=== PATIENT | female | born 1995 | race Caucasian/White ===

== ENCOUNTER 2023-05-29 07:36 | Inpatient (IN) ==
[2023-05-29] MEDS ORDERED: LIDOCAINE 1% LOCAL 20 ML VIAL INFIL PRN (07:56)
[2023-05-29] MEDS ORDERED: OXYTOCIN 30 UNITS/NSS 30 UNITS/500 ML BAG IV PRN ×2 (07:56)
[2023-05-29 08:28] LABS: Hematocrit (blood only) 33.3 % (37.0-47.0); Hemoglobin 10.7 g/dl (12.0-16.0); Mean Corpuscular Hemoglobin 26.1 pg (25.0-34.0); Mean Corpuscular Hgb Conc 32.1 g/dL (32.0-36.0); Mean Corpuscular Volume 81.2 fL (80.0-100.0); Mean Platelet Volume 11.4 fL (9.4-12.4); Platelet Count 151 K/uL (130-400); RDW Coefficient of Variation 14.5 % (11.5-14.5); RDW Standard Deviation 41.8 fL (36.4-46.3); White Blood Count 7.16 K/ul (4.8-10.8)
[2023-05-29] MEDS: LACTATED RINGER'S 1,000 ML IV PRN ×4 (10:35→23:04)
--- NOTE | 2023-05-29 11:03 | History & Physical Report ---
Date of Service May 29, 2023 Assessment & Plan (1) Supervision of normal first : Plan: Admit to L&D for IOL. Bird bulb placed, 35cc sterile water. Start pitocin. OK for epidural when she desires. Admission and Anticipated Discharge Date Admission Date: May 29, 2023 History of Present Illness Chief Complaint: IOL Primary Care Provider: CASEY PCP 28yo @ 40 09/12, here for IOL. and Delivery Plans Chiari Malformation s/p decompression -mfm consult (11/14/22 @ [facility] [place]ok for vaginal delivery per [facility] recommend 3rd trimester anesthesia consult (03/19/23 @ 945 am)--done Rubella equivocal MMR pp EFW 96% at anatomy LGA at 32wks *recheck growth at 36wks--AC 98, efw >98, poly *rec 2hr gtt Polyhydramnios *Weekly NSTs @ Dx *Weekly AFIs @ Dx *If pocket >16 refer to MFM *Deliver between [id number] (IOL scheduled 05/29/23) Allergies Allergy/AdvReac Type Severity Reaction Status Date / Time No Known Allergies Allergy Verified 05/29/23 08:18 Home Medications Medication Instructions Recorded Confirmed Type prenat.vits,sheng,kix-jgwo-uuuix 1 tab PO DAILY 10/18/22 05/29/23 History Patient History Medical History Chiari malformation Type I malformation per [facility] records Status post posterior decompression via suboccipital craniotomy in 2014 by neurosurgeon in [place]. Completely asymptomatic since that time. Follow-up with neurosurgery for a few years after procedure but has since been released from care Varicella vaccine Chicken pox Surgical History History of craniotomy Posterior decompression via suboccipital craniotomy 2014 S/P tonsillectomy and adenoidectomy S/P tympanostomy tube placement Family History Grandmother (Paternal) Breast cancer Grandfather (Paternal) Colorectal cancer Brother Autism Denies family history of Ovarian cancer Prostate cancer Myocardial infarction Social History Smoking Status: Never smoker Do You Dip or Chew Tobacco: No; Hx Alcohol Use: No Hx Substance Use: No Preferred Language: Korean 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 Beliefs That Will Affect Care: None marital status: marital status details: Nguyễn Montes (26) [phone] Current Living Situation: Spouse Current Living Situation Comment: lives with , dog current occupational status: employed current occupation: [employer] Other Information That Helps Us Care for You: No Feels Safe at Home: Yes Safety Concerns: Feels Safe At This Time Assistive Devices: None Review of Systems All systems reviewed & are unremarkable except as noted in HPI & below Physical Exam Physical Exam: FHT Cat 1 [place] Q 2 SVE /-3 Constitutional: WD/WN, vitals as above Respiratory: normal respiratory effort, lungs clear to auscultation no respiratory distress Cardiovascular: Rate/Rhythm: regular rate and regular rhythm Gastrointestinal (Abdomen): Inspection/Auscultation: abdomen normal to ins pection Percussion/Palpation: abdomen soft; abdomen nontender Gravid. No s/s chorio or abruption. Skin: no rashes, warm and dry Psychiatric: A+Ox3, euthymic affect Results & Data Vital Signs (Past 12 Hours) Vital Signs Temp Pulse Resp BP 05/29/23 10:45 97 H 126/85 05/29/23 07:50 36.7 C 18 05/29/23 07:47 107 H 127/85 Coding Level of Care Code None Diagnoses Supervision of normal first Z34.00
[2023-05-29] MEDS ORDERED: BUTORPHANOL TARTRATE 1 MG/ML VIAL IV PRN (12:00)
--- NOTE | 2023-05-29 19:17 | Labor Progress Brief Note ---
Date of Service May 29, 2023 Subjective Comfortable. FHT Cat 1 [place] Q 2 Bird bulb fell out, cervix is 4/80/-2. Bulging membranes. AROM clear fluid. Continue pitocin, ok for epidural when she desires. Assessment & Plan Admission and Anticipated Discharge Date Admission Date: May 29, 2023 Results & Data Vital Signs (Past 12 Hours) Vital Signs Temp Pulse Resp BP 05/29/23 18:49 20 05/29/23 18:49 37.0 C 20 05/29/23 18:47 92 H 141/81 H 05/29/23 17:46 97 H 133/83 05/29/23 16:47 95 H 131/85 05/29/23 15:46 93 H 143/73 H 05/29/23 15:19 36.7 C 05/29/23 14:47 99 H 130/84 05/29/23 14:00 16 05/29/23 14:00 36.6 C 16 05/29/23 13:46 99 H 122/79 05/29/23 12:46 94 H 116/72 05/29/23 11:47 91 H 135/82 05/29/23 10:45 97 H 126/85 05/29/23 07:50 36.7 C 18 05/29/23 07:47 107 H 127/85 Coding Level of Care Code None
[2023-05-29] MEDS ORDERED: fentANYL 2 MCG/ML BUPIVacaine 0.125%-NSS 100ML BAG ONE (20:01)
[2023-05-29] MEDS ORDERED: LIDOCAINE 2%/EPINEPHRINE 1:200,000 20 ML PF ONE (20:01)
[2023-05-29] MEDS ORDERED: fentaNYL citrate PF 100 MCG/2 ML VIAL ONE (20:01)
[2023-05-29] MEDS ORDERED: ePHEDrine sulfate 50 MG/ML AMP ONE (20:01)
[2023-05-29] MEDS ORDERED: SODIUM CHLORIDE 0.9% PF INJ 10 ML VIAL ONE (20:01)
[2023-05-29] MEDS ORDERED: BUPIVACAINE 0.25% PF 30 ML VIAL ONE (20:01)
--- NOTE | 2023-05-29 20:05 | Anesthesiology Consultation ---
Date of Service May 29, 2023 Assessment & Plan (1) Encounter for pre-operative examination: Chart Review Chart Review: Acceptable Risk for Labor Epidural History Height/Weight Height: 5 ft 9 in Weight: 110.223 kg Allergies Allergy/AdvReac Type Severity Reaction Status Date / Time No Known Allergies Allergy Verified 05/29/23 08:18 Medications Home Medications Medication Instructions Recorded Confirmed Last Taken prenat.vits,sheng,men-yhkb-jzvjm 1 tab PO DAILY 10/18/22 05/29/23 05/29/23 06:00 Active Medications Generic Name Dose Route Start Last Admin Trade Name Freq PRN Reason Stop Dose Admin Butorphanol Tartrate 1 mg 05/29/23 12:00 05/29/23 12:11 Butorphanol Tartrate 1 Mg/Ml Vial IV 06/28/23 11:59 1 mg Q2HWA PRN Administration Pain Lactated Ringer's 1,000 mls @ 125 mls/hr 05/29/23 07:56 05/29/23 19:50 Lr IV 05/31/23 07:55 999 mls/hr .Q8H PRN Infusion L&D Protocol Protocol Oxytocin 30 units in 500 mls @ 10 mls/hr 05/29/23 07:56 05/29/23 19:18 Pitocin 30 Units/Nss IV 05/31/23 07:55 0.6 units/hr .Q24H PRN 10 mls/hr Labor Induction/Augmentation Titration Protocol 0.6 UNITS/HR Past Medical History Medical History Chiari malformation Type I malformation per [facility] records Status post posterior decompression via suboccipital craniotomy in 2014 by neurosurgeon in [place]. Completely asymptomatic since that time. Follow-up with neurosurgery for a few years after procedure but has since been released from care Varicella vaccine Chicken pox Past Family History Family History Grandmother (Paternal) Breast cancer Grandfather (Paternal) Colorectal cancer Brother Autism Denies family history of Ovarian cancer Prostate cancer Myocardial infarction Past Surgical History Surgical History History of craniotomy Posterior decompression via suboccipital craniotomy 2015 S/P tonsillectomy and adenoidectomy S/P tympanostomy tube placement Social History Smoking Status: Never smoker Do You Dip or Chew Tobacco: No Hx Alcohol Use: No Hx Substance Use: No Physical Exam Vital Signs Last Vital Signs Temp 37.0 C 05/29/23 18:49 Pulse 99 H 05/29/23 19:47 Resp 20 05/29/23 18:49 BP 141/98 H 05/29/23 19:47 Testing Laboratory Results 05/29/23 08:11 Blood Type A Positive 05/29/23 08:11 Antibody Screen NEGATIVE 05/29/23 08:11
[2023-05-29] MEDS ORDERED: NALOXONE HCL 0.4 MG/1 ML VIAL/CARP IV PRN (20:34)
[2023-05-29] MEDS ORDERED: fentaNYL citrate PF 100 MCG/2 ML VIAL EPI PRN (20:34)
[2023-05-29] MEDS ORDERED: LIDOCAINE 2% MPF LOCAL 5 ML VIAL EPI PRN (20:34)
[2023-05-29] MEDS ORDERED: ROPIVACAINE 0.5% PF 5 MG/ML 20 ML VIAL EPI PRN (20:34)
[2023-05-29] MEDS ORDERED: ePHEDrine sulfate 50 MG/ML AMP IV PRN (20:34)
[2023-05-29] MEDS ORDERED: fentaNYL citrate PF 100 MCG/2 ML VIAL EPI STA (20:34)
[2023-05-29] MEDS ORDERED: SODIUM CHLORIDE 0.9% PF INJ 10 ML VIAL EPI STA (20:34)
[2023-05-29] MEDS ORDERED: BUPIVACAINE 0.25% PF 30 ML VIAL EPI STA (20:34)
[2023-05-29] MEDS ORDERED: BUPIVACAINE 0.25% PF 30 ML VIAL EPI PRN (20:34)
[2023-05-29] MEDS ORDERED: SODIUM CHLORIDE 0.9% PF INJ 10 ML VIAL EPI PRN (20:34)
[2023-05-29] MEDS ORDERED: NALOXONE HCL 1 MG in SODIUM CHLORIDE 0.9% 1,000 ML IV PRN (20:34)
[2023-05-29] MEDS ORDERED: ONDANSETRON INJ 2 MG/ML 2 ML VIAL IV PRN (20:34)
[2023-05-29] MEDS ORDERED: LIDOCAINE 2%/EPINEPHRINE 1:200,000 20 ML PF EPI STA (20:34)
--- NOTE | 2023-05-30 00:37 | Labor Progress Brief Note ---
Date of Service May 30, 2023 Subjective Comfortable with epidural. FHT Cat 1 [place] Q 2 SVE /-1 Continue pitocin. Assessment & Plan Admission and Anticipated Discharge Date Admission Date: May 29, 2023 Results & Data Vital Signs (Past 12 Hours) Vital Signs Temp Pulse Resp BP Pulse Ox O2 Del Method 05/30/23 00:32 93 H 116/68 05/30/23 00:31 91 H 95 05/30/23 00:26 82 95 05/30/23 00:21 93 H 95 05/30/23 00:16 94 H 119/71 95 05/30/23 00:11 95 H 95 05/30/23 00:06 94 H 95 05/30/23 00:02 86 124/70 05/30/23 00:01 87 96 05/30/23 00:00 18 05/30/23 00:00 18 05/29/23 23:56 94 H 95 05/29/23 23:51 97 H 96 05/29/23 23:46 95 05/29/23 23:46 87 05/29/23 23:46 93 H 112/64 05/29/23 23:41 97 H 95 05/29/23 23:36 83 95 05/29/23 23:31 91 H 123/71 96 05/29/23 23:30 18 05/29/23 23:30 18 05/29/23 23:26 94 H 96 05/29/23 23:21 95 H 97 05/29/23 23:16 96 05/29/23 23:16 97 H 05/29/23 23:16 90 125/77 05/29/23 23:12 36.8 C 18 05/29/23 23:12 Room Air 05/29/23 23:12 18 05/29/23 23:12 36.8 C 18 05/29/23 23:11 91 H 97 05/29/23 23:06 92 H 97 05/29/23 23:03 95 H 121/78 05/29/23 23:01 101 H 96 05/29/23 23:00 20 05/29/23 23:00 36.9 C 20 05/29/23 22:56 99 H 98 05/29/23 22:51 88 99 05/29/23 22:48 82 122/77 05/29/23 22:46 97 H 98 05/29/23 22:41 87 98 05/29/23 22:36 104 H 96 05/29/23 22:32 107 H 121/76 05/29/23 22:31 96 H 96 05/29/23 22:30 18 05/29/23 22:30 18 05/29/23 22:26 97 H 96 05/29/23 22:21 102 H 96 05/29/23 22:16 96 05/29/23 22:16 93 H 05/29/23 22:16 104 H 117/68 05/29/23 22:11 111 H 96 05/29/23 22:06 91 H 95 05/29/23 22:02 94 H 127/78 05/29/23 22:01 93 H 96 05/29/23 22:00 20 05/29/23 22:00 20 05/29/23 21:56 96 H 96 05/29/23 21:51 90 96 05/29/23 21:46 96 05/29/23 21:46 92 H 05/29/23 21:46 93 H 125/79 05/29/23 21:41 99 H 96 05/29/23 21:36 97 H 96 05/29/23 21:31 97 H 120/67 96 05/29/23 21:30 20 05/29/23 21:30 20 05/29/23 21:27 89 123/70 05/29/23 21:26 82 95 05/29/23 21:22 88 121/60 05/29/23 21:21 92 H 95 05/29/23 21:17 85 123/68 05/29/23 21:16 84 95 05/29/23 21:11 95 05/29/23 21:11 80 05/29/23 21:11 90 119/67 05/29/23 21:08 90 122/72 05/29/23 21:06 89 95 05/29/23 21:01 96 05/29/23 21:01 92 H 05/29/23 21:01 86 117/70 05/29/23 21:00 20 05/29/23 21:00 20 05/29/23 20:56 85 130/69 96 05/29/23 20:51 99 H 123/72 98 05/29/23 20:46 90 98 05/29/23 20:45 87 126/77 05/29/23 20:43 85 120/71 05/29/23 20:41 90 126/74 94 05/29/23 20:39 83 129/74 05/29/23 20:37 84 127/75 85 L 05/29/23 20:36 76 94 05/29/23 20:35 91 H 126/75 05/29/23 20:33 85 130/76 05/29/23 20:31 96 05/29/23 20:31 89 05/29/23 20:31 93 H 136/74 05/29/23 20:30 20 05/29/23 20:30 36.8 C 20 05/29/23 20:29 96 H 136/79 05/29/23 20:28 98 H 89 L 05/29/23 20:26 104 H 93 05/29/23 20:25 18 05/29/23 20:25 18 05/29/23 20:21 115 H 93 05/29/23 20:20 109 H 88 L 05/29/23 20:16 112 H 79 L 05/29/23 20:14 96 H 84 L 05/29/23 20:11 95 H 93 05/29/23 20:06 90 05/29/23 20:06 91 H 05/29/23 20:06 93 H 92 05/29/23 19:47 99 H 141/98 H 05/29/23 18:49 20 05/29/23 18:49 37.0 C 20 05/29/23 18:47 92 H 141/81 H 05/29/23 17:46 97 H 133/83 05/29/23 16:47 95 H 131/85 05/29/23 15:46 93 H 143/73 H 05/29/23 15:19 36.7 C 05/29/23 14:47 99 H 130/84 05/29/23 14:00 16 05/29/23 14:00 36.6 C 16 05/29/23 13:46 99 H 122/79 05/29/23 12:46 94 H 116/72 Coding Level of Care Code None
[2023-05-30] MEDS: fentANYL 2 MCG/ML BUPIVacaine 0.125%-NSS 100ML BAG EPI PRN ×2 (05:02→11:26)
--- NOTE | 2023-05-30 05:05 | Labor Progress Brief Note ---
Date of Service May 30, 2023 Subjective Comfortable with epidural. FHT cat 1 [place] Q 2 SVE 7/100/0 Continue IOL. Assessment & Plan Admission and Anticipated Discharge Date Admission Date: May 29, 2023 Results & Data Vital Signs (Past 12 Hours) Vital Signs Temp Pulse Resp BP Pulse Ox O2 Del Method 05/30/23 05:01 111 H 133/80 97 05/30/23 04:59 110 H 89 L 05/30/23 04:56 117 H 96 05/30/23 04:51 106 H 97 05/30/23 04:46 111 H 135/80 97 05/30/23 04:41 109 H 96 05/30/23 04:36 106 H 95 05/30/23 04:31 105 H 119/69 95 05/30/23 04:26 110 H 95 05/30/23 04:21 106 H 95 05/30/23 04:16 95 05/30/23 04:16 97 H 05/30/23 04:16 103 H 125/73 05/30/23 04:11 101 H 95 05/30/23 04:06 95 H 95 05/30/23 04:04 36.9 C 05/30/23 04:02 103 H 131/77 05/30/23 04:01 96 H 96 05/30/23 04:00 18 05/30/23 04:00 18 05/30/23 03:56 102 H 95 05/30/23 03:51 111 H 96 05/30/23 03:47 109 H 136/82 05/30/23 03:46 106 H 94 05/30/23 03:41 106 H 95 05/30/23 03:36 108 H 96 05/30/23 03:32 101 H 139/84 05/30/23 03:31 103 H 95 05/30/23 03:30 18 05/30/23 03:30 18 05/30/23 03:26 103 H 94 05/30/23 03:21 103 H 95 05/30/23 03:17 107 H 132/76 05/30/23 03:16 101 H 95 05/30/23 03:11 106 H 95 05/30/23 03:06 91 H 95 05/30/23 03:02 109 H 133/76 05/30/23 03:01 101 H 95 05/30/23 02:56 88 95 11/22/23 02:51 99 H 95 05/30/23 02:47 103 H 129/81 05/30/23 02:46 103 H 96 05/30/23 02:41 96 H 96 05/30/23 02:36 98 H 96 05/30/23 02:32 99 H 125/75 05/30/23 02:31 97 H 96 05/30/23 02:26 94 H 96 05/30/23 02:21 86 95 05/30/23 02:17 94 H 123/75 05/30/23 02:16 95 H 95 05/30/23 02:11 97 H 96 05/30/23 02:06 101 H 96 05/30/23 02:05 18 05/30/23 02:05 36.8 C 18 05/30/23 02:01 96 05/30/23 02:01 99 H 05/30/23 02:01 102 H 125/70 05/30/23 01:56 96 H 95 05/30/23 01:51 100 H 96 05/30/23 01:48 90 121/64 05/30/23 01:46 97 H 95 05/30/23 01:41 97 H 95 05/30/23 01:36 98 H 95 05/30/23 01:32 100 H 126/78 05/30/23 01:31 94 H 96 05/30/23 01:30 18 05/30/23 01:30 18 05/30/23 01:26 88 95 05/30/23 01:21 92 H 95 05/30/23 01:17 96 H 126/71 05/30/23 01:16 94 H 96 05/30/23 01:11 98 H 95 05/30/23 01:06 81 95 05/30/23 01:01 95 05/30/23 01:01 98 H 05/30/23 01:01 96 H 118/72 05/30/23 01:00 18 05/30/23 01:00 18 05/30/23 00:56 102 H 95 05/30/23 00:51 97 H 95 05/30/23 00:47 101 H 118/61 05/30/23 00:46 102 H 95 05/30/23 00:41 88 95 05/30/23 00:36 100 H 95 05/30/23 00:35 36.8 C 05/30/23 00:32 93 H 116/68 05/30/23 00:31 91 H 95 05/30/23 00:30 18 05/30/23 00:30 18 05/30/23 00:26 82 95 05/30/23 00:21 93 H 95 05/30/23 00:16 94 H 119/71 95 05/30/23 00:11 95 H 95 05/30/23 00:06 94 H 95 05/30/23 00:02 86 124/70 05/30/23 00:01 87 96 05/30/23 00:00 18 05/30/23 00:00 18 05/29/23 23:56 94 H 95 05/29/23 23:51 97 H 96 05/29/23 23:46 95 05/29/23 23:46 87 05/29/23 23:46 93 H 112/64 05/29/23 23:41 97 H 95 05/29/23 23:36 83 95 05/29/23 23:31 91 H 123/71 96 05/29/23 23:30 18 05/29/23 23:30 18 05/29/23 23:26 94 H 96 05/29/23 23:21 95 H 97 05/29/23 23:16 96 05/29/23 23:16 97 H 05/29/23 23:16 90 125/77 05/29/23 23:12 36.8 C 18 05/29/23 23:12 Room Air 05/29/23 23:12 18 05/29/23 23:12 36.8 C 18 05/29/23 23:11 91 H 97 05/29/23 23:06 92 H 97 05/29/23 23:03 95 H 121/78 05/29/23 23:01 101 H 96 05/29/23 23:00 20 05/29/23 23:00 36.9 C 20 05/29/23 22:56 99 H 98 05/29/23 22:51 88 99 05/29/23 22:48 82 122/77 05/29/23 22:46 97 H 98 05/29/23 22:41 87 98 05/29/23 22:36 104 H 96 05/29/23 22:32 107 H 121/76 05/29/23 22:31 96 H 96 05/29/23 22:30 18 05/29/23 22:30 18 05/29/23 22:26 97 H 96 05/29/23 22:21 102 H 96 05/29/23 22:16 96 05/29/23 22:16 93 H 05/29/23 22:16 104 H 117/68 05/29/23 22:11 111 H 96 05/29/23 22:06 91 H 95 05/29/23 22:02 94 H 127/78 05/29/23 22:01 93 H 96 05/29/23 22:00 20 05/29/23 22:00 20 05/29/23 21:56 96 H 96 05/29/23 21:51 90 96 05/29/23 21:46 96 05/29/23 21:46 92 H 05/29/23 21:46 93 H 125/79 05/29/23 21:41 99 H 96 05/29/23 21:36 97 H 96 05/29/23 21:31 97 H 120/67 96 05/29/23 21:30 20 05/29/23 21:30 20 05/29/23 21:27 89 123/70 05/29/23 21:26 82 95 05/29/23 21:22 88 121/60 05/29/23 21:21 92 H 95 05/29/23 21:17 85 123/68 05/29/23 21:16 84 95 05/29/23 21:11 95 05/29/23 21:11 80 05/29/23 21:11 90 119/67 05/29/23 21:08 90 122/72 05/29/23 21:06 89 95 05/29/23 21:01 96 05/29/23 21:01 92 H 05/29/23 21:01 86 117/70 05/29/23 21:00 20 05/29/23 21:00 20 05/29/23 20:56 85 130/69 96 05/29/23 20:51 99 H 123/72 98 05/29/23 20:46 90 98 05/29/23 20:45 87 126/77 05/29/23 20:43 85 120/71 05/29/23 20:41 90 126/74 94 05/29/23 20:39 83 129/74 05/29/23 20:37 84 127/75 85 L 05/29/23 20:36 76 94 05/29/23 20:35 91 H 126/75 05/29/23 20:33 85 130/76 05/29/23 20:31 96 05/29/23 20:31 89 05/29/23 20:31 93 H 136/74 05/29/23 20:30 20 05/29/23 20:30 36.8 C 20 05/29/23 20:29 96 H 136/79 05/29/23 20:28 98 H 89 L 05/29/23 20:26 104 H 93 05/29/23 20:25 18 05/29/23 20:25 18 05/29/23 20:21 115 H 93 05/29/23 20:20 109 H 88 L 05/29/23 20:16 112 H 79 L 05/29/23 20:14 96 H 84 L 05/29/23 20:11 95 H 93 05/29/23 20:06 90 05/29/23 20:06 91 H 05/29/23 20:06 93 H 92 05/29/23 19:47 99 H 141/98 H 05/29/23 18:49 20 05/29/23 18:49 37.0 C 20 05/29/23 18:47 92 H 141/81 H 05/29/23 17:46 97 H 133/83 Coding Level of Care Code None
[2023-05-30] MEDS: LACTATED RINGER'S 1,000 ML IV PRN ×2 (05:17→09:49)
--- NOTE | 2023-05-30 07:40 | Labor Progress Brief Note ---
Date of Service May 30, 2023 Subjective Comfortable. FHT Cat 1 [place] Q 2 SVE 9/100/+1 Continue labor. Assessment & Plan Admission and Anticipated Discharge Date Admission Date: May 29, 2023 Results & Data Vital Signs (Past 12 Hours) Vital Signs Temp Pulse Resp BP Pulse Ox O2 Del Method 05/30/23 07:36 102 H 98 05/30/23 07:31 98 05/30/23 07:31 103 H 05/30/23 07:31 100 H 127/67 05/30/23 07:26 96 H 98 05/30/23 07:21 106 H 98 05/30/23 07:17 125 H 132/83 05/30/23 07:16 126 H 98 05/30/23 07:11 109 H 95 05/30/23 07:06 111 H 97 05/30/23 07:05 16 05/30/23 07:05 36.7 C 16 05/30/23 07:01 97 05/30/23 07:01 112 H 05/30/23 07:01 111 H 134/81 05/30/23 06:56 111 H 96 05/30/23 06:51 103 H 97 05/30/23 06:47 111 H 134/82 05/30/23 06:46 107 H 95 05/30/23 06:41 106 H 96 05/30/23 06:36 108 H 97 05/30/23 06:31 109 H 131/86 97 05/30/23 06:30 18 05/30/23 06:30 18 05/30/23 06:26 101 H 95 05/30/23 06:21 97 H 95 05/30/23 06:16 108 H 126/86 97 05/30/23 06:11 102 H 95 05/30/23 06:10 18 05/30/23 06:10 36.8 C 18 05/30/23 06:06 100 H 96 05/30/23 06:01 100 H 130/80 96 05/30/23 05:56 102 H 95 05/30/23 05:51 99 H 96 05/30/23 05:47 104 H 129/86 05/30/23 05:46 106 H 96 05/30/23 05:41 104 H 97 05/30/23 05:36 100 H 97 05/30/23 05:32 109 H 134/85 05/30/23 05:31 104 H 97 05/30/23 05:30 18 05/30/23 05:30 18 05/30/23 05:26 100 H 97 05/30/23 05:21 96 H 96 05/30/23 05:16 99 05/30/23 05:16 103 H 05/30/23 05:16 98 H 126/79 05/30/23 05:11 106 H 98 05/30/23 05:06 104 H 98 05/30/23 05:01 111 H 133/80 97 05/30/23 05:00 20 05/30/23 05:00 20 05/30/23 04:59 110 H 89 L 05/30/23 04:56 117 H 96 05/30/23 04:51 106 H 97 05/30/23 04:46 111 H 135/80 97 05/30/23 04:41 109 H 96 05/30/23 04:36 106 H 95 05/30/23 04:31 105 H 119/69 95 05/30/23 04:30 18 05/30/23 04:30 18 05/30/23 04:26 110 H 95 05/30/23 04:21 106 H 95 05/30/23 04:16 95 05/30/23 04:16 97 H 05/30/23 04:16 103 H 125/73 05/30/23 04:11 101 H 95 05/30/23 04:06 95 H 95 05/30/23 04:04 36.9 C 05/30/23 04:02 103 H 131/77 05/30/23 04:01 96 H 96 05/30/23 04:00 18 05/30/23 04:00 18 05/30/23 03:56 102 H 95 05/30/23 03:51 111 H 96 05/30/23 03:47 109 H 136/82 05/30/23 03:46 106 H 94 05/30/23 03:41 106 H 95 05/30/23 03:36 108 H 96 05/30/23 03:32 101 H 139/84 05/30/23 03:31 103 H 95 05/30/23 03:30 18 05/30/23 03:30 18 05/30/23 03:26 103 H 94 05/30/23 03:21 103 H 95 05/30/23 03:17 107 H 132/76 05/30/23 03:16 101 H 95 05/30/23 03:11 106 H 95 05/30/23 03:06 91 H 95 05/30/23 03:02 109 H 133/76 05/30/23 03:01 101 H 95 05/30/23 02:56 88 95 05/30/23 02:51 99 H 95 05/30/23 02:47 103 H 129/81 05/30/23 02:46 103 H 96 05/30/23 02:41 96 H 96 05/30/23 02:36 98 H 96 05/30/23 02:32 99 H 125/75 05/30/23 02:31 97 H 96 05/30/23 02:26 94 H 96 05/30/23 02:21 86 95 05/30/23 02:17 94 H 123/75 05/30/23 02:16 95 H 95 05/30/23 02:11 97 H 96 05/30/23 02:06 101 H 96 05/30/23 02:05 18 05/30/23 02:05 36.8 C 18 05/30/23 02:01 96 05/30/23 02:01 99 H 05/30/23 02:01 102 H 125/70 05/30/23 01:56 96 H 95 05/30/23 01:51 100 H 96 05/30/23 01:48 90 121/64 05/30/23 01:46 97 H 95 05/30/23 01:41 97 H 95 05/30/23 01:36 98 H 95 05/30/23 01:32 100 H 126/78 05/30/23 01:31 94 H 96 05/30/23 01:30 18 05/30/23 01:30 18 05/30/23 01:26 88 95 05/30/23 01:21 92 H 95 05/30/23 01:17 96 H 126/71 05/30/23 01:16 94 H 96 05/30/23 01:11 98 H 95 05/30/23 01:06 81 95 05/30/23 01:01 95 05/30/23 01:01 98 H 05/30/23 01:01 96 H 118/72 05/30/23 01:00 18 05/30/23 01:00 18 05/30/23 00:56 102 H 95 05/30/23 00:51 97 H 95 05/30/23 00:47 101 H 118/61 05/30/23 00:46 102 H 95 05/30/23 00:41 88 95 05/30/23 00:36 100 H 95 05/30/23 00:35 36.8 C 05/30/23 00:32 93 H 116/68 05/30/23 00:31 91 H 95 05/30/23 00:30 18 05/30/23 00:30 18 05/30/23 00:26 82 95 05/30/23 00:21 93 H 95 05/30/23 00:16 94 H 119/71 95 05/30/23 00:11 95 H 95 05/30/23 00:06 94 H 95 05/30/23 00:02 86 124/70 05/30/23 00:01 87 96 05/30/23 00:00 18 05/30/23 00:00 18 05/29/23 23:56 94 H 95 05/29/23 23:51 97 H 96 05/29/23 23:46 95 05/29/23 23:46 87 05/29/23 23:46 93 H 112/64 05/29/23 23:41 97 H 95 05/29/23 23:36 83 95 05/29/23 23:31 91 H 123/71 96 05/29/23 23:30 18 05/29/23 23:30 18 05/29/23 23:26 94 H 96 05/29/23 23:21 95 H 97 05/29/23 23:16 96 05/29/23 23:16 97 H 05/29/23 23:16 90 125/77 05/29/23 23:12 36.8 C 18 05/29/23 23:12 Room Air 05/29/23 23:12 18 05/29/23 23:12 36.8 C 18 05/29/23 23:11 91 H 97 05/29/23 23:06 92 H 97 05/29/23 23:03 95 H 121/78 05/29/23 23:01 101 H 96 05/29/23 23:00 20 05/29/23 23:00 36.9 C 20 05/29/23 22:56 99 H 98 05/29/23 22:51 88 99 05/29/23 22:48 82 122/77 05/29/23 22:46 97 H 98 05/29/23 22:41 87 98 05/29/23 22:36 104 H 96 05/29/23 22:32 107 H 121/76 05/29/23 22:31 96 H 96 05/29/23 22:30 18 05/29/23 22:30 18 05/29/23 22:26 97 H 96 05/29/23 22:21 102 H 96 05/29/23 22:16 96 05/29/23 22:16 93 H 05/29/23 22:16 104 H 117/68 05/29/23 22:11 111 H 96 05/29/23 22:06 91 H 95 05/29/23 22:02 94 H 127/78 05/29/23 22:01 93 H 96 05/29/23 22:00 20 05/29/23 22:00 20 05/29/23 21:56 96 H 96 05/29/23 21:51 90 96 05/29/23 21:46 96 05/29/23 21:46 92 H 05/29/23 21:46 93 H 125/79 05/29/23 21:41 99 H 96 05/29/23 21:36 97 H 96 05/29/23 21:31 97 H 120/67 96 05/29/23 21:30 20 05/29/23 21:30 20 05/29/23 21:27 89 123/70 05/29/23 21:26 82 95 05/29/23 21:22 88 121/60 05/29/23 21:21 92 H 95 05/29/23 21:17 85 123/68 05/29/23 21:16 84 95 05/29/23 21:11 95 05/29/23 21:11 80 05/29/23 21:11 90 119/67 05/29/23 21:08 90 122/72 05/29/23 21:06 89 95 05/29/23 21:01 96 05/29/23 21:01 92 H 05/29/23 21:01 86 117/70 05/29/23 21:00 20 05/29/23 21:00 20 05/29/23 20:56 85 130/69 96 05/29/23 20:51 99 H 123/72 98 05/29/23 20:46 90 98 05/29/23 20:45 87 126/77 05/29/23 20:43 85 120/71 05/29/23 20:41 90 126/74 94 05/29/23 20:39 83 129/74 05/29/23 20:37 84 127/75 85 L 05/29/23 20:36 76 94 05/29/23 20:35 91 H 126/75 05/29/23 20:33 85 130/76 05/29/23 20:31 96 05/29/23 20:31 89 05/29/23 20:31 93 H 136/74 05/29/23 20:30 20 05/29/23 20:30 36.8 C 20 05/29/23 20:29 96 H 136/79 05/29/23 20:28 98 H 89 L 05/29/23 20:26 104 H 93 05/29/23 20:25 18 05/29/23 20:25 18 05/29/23 20:21 115 H 93 05/29/23 20:20 109 H 88 L 05/29/23 20:16 112 H 79 L 05/29/23 20:14 96 H 84 L 05/29/23 20:11 95 H 93 05/29/23 20:06 90 05/29/23 20:06 91 H 05/29/23 20:06 93 H 92 05/29/23 19:47 99 H 141/98 H Coding Level of Care Code None
[2023-05-30] MEDS ORDERED: DIPHTHERIA/TETANUS/PERTUSSIS Vaccine (Tdap, Age 7+yrs) 0.5mL SYR/VL IM ONE (14:08)
[2023-05-30] MEDS ORDERED: ACETAMINOPHEN 325 MG TAB PO PRN (14:08)
[2023-05-30] MEDS ORDERED: bisacodyL 10 MG SUPP PR PRN (14:08)
[2023-05-30] MEDS ORDERED: OXYTOCIN 30 UNITS/NSS 30 UNITS/500 ML BAG IV PRN (14:08)
[2023-05-30] MEDS ORDERED: BENZOCAINE 20% SPRY 85 APPLN/85 GM CAN EXT PRN (14:08)
[2023-05-30] MEDS ORDERED: HYDROCORTISONE ACETATE 25 MG SUPP PR PRN (14:08)
[2023-05-30] MEDS ORDERED: oxyCODONE/ACETAMINOPHEN 5mg/325mg TAB PO PRN (14:08)
--- NOTE | 2023-05-30 14:46 | Anesthesia Procedure Note ---
Date of Service May 30, 2023 Anesthesia Post Epidural Note Vital Signs Vital Signs: Temp Pulse Resp BP Pulse Ox O2 Del Method 98.8 F 133 H 18 130/67 97 Room Air 05/30/23 14:00 05/30/23 14:31 05/30/23 14:30 05/30/23 14:31 05/30/23 13:56 05/29/23 23:12 Pain Intensity Bilateral Abdomen: Pain Intensity: 0 Notes Mental Status: alert / awake / arousable and participated in evaluation Nausea / Vomiting: adequately controlled Pain: adequately controlled Airway Patency, RR, SpO2: stable & adequate BP & HR: stable & adequate Hydration State: stable & adequate Neuraxial Anesthesia: was administered and sensory block is resolving Anesthetic Complications: no major complications apparent and Pt Satisfied with anesthetic care Epidural: Removed without complications and With tip intact
[2023-05-30] MEDS: IBUPROFEN 600 MG TAB PO PRN ×2 (16:07→21:47)
--- NOTE | 2023-05-30 16:22 | Delivery Summary ---
Vaginal Delivery Summary Date of Service May 30, 2023 Vaginal Delivery Summary and 3rd Degree LAC (partial) Patient is a 28-year-old 1 P0 female who had presented for induction of labor because of polyhydramnios at term. Dr. Fitzgerald had managed her labor until change of shift when I took over her care. She was fully dilated shortly thereafter. After laboring down, she began to feel pelvic pressure with the urge to push. She pushed over 2-1/2 hours effectively. The infant was noted to be large for gestational age and there was a tight band at the perineum which appeared to be impeding delivery. A small midline episiotomy was performed, and with the next pushed delivered a viable male . The rest the infant delivered easily and was placed on the mother's abdomen for further attention and drying. There was a loose nuchal cord which reduced spontaneously with delivery of the shoulders. The infant was vigorous crying and moving all 4 limbs. Was a copious amount of amniotic fluid that followed the delivery of the baby. After cord blood was obtained, the placenta was expressed intact with three-vessel cord. bleeding was controlled with dilute Pitocin and fundal massage. A partial third-degree laceration was repaired with 3-0 Vicryl for the third-degree repair and 3-0 chromic for the rest of the perineal laceration repair. Estimated blood loss 400 cc. Mother and doing well after delivery. [facility] [place] Vaginal Delivery Charge Delivery Type Details: and 3rd Degree LAC (partial)
[2023-05-30] MEDS: DOCUSATE SODIUM 100 MG CAP PO SCH (21:47)
[2023-05-31] MEDS: IBUPROFEN 600 MG TAB PO PRN ×4 (02:27→19:56)
[2023-05-31 06:37] LABS: Hematocrit (blood only) 23.8 % (37.0-47.0); Hemoglobin 7.6 g/dl (12.0-16.0); Mean Corpuscular Hemoglobin 26.3 pg (25.0-34.0); Mean Corpuscular Hgb Conc 31.9 g/dL (32.0-36.0); Mean Corpuscular Volume 82.4 fL (80.0-100.0); Mean Platelet Volume 11.5 fL (9.4-12.4); Platelet Count 122 K/uL (130-400); RDW Standard Deviation 43.7 fL (36.4-46.3); Red Blood Count 2.89 M/uL (4.20-5.40); White Blood Count 15.27 K/ul (4.8-10.8)
--- NOTE | 2023-05-31 06:58 | Obstetrical Progress Note ---
Date of Service May 31, 2023 Assessment & Plan (1) care following vaginal delivery: Plan: Doing well Encourage ambulation Pain control Plan for discharge tomorrow Admission and Anticipated Discharge Date Admission Date: May 29, 2023 Supervising Physician Co-Signing Physician Notes Resident Physician Supervision Note: I interviewed and examined the patient. Discussed with Dr. Morris and agree with findings and plan as documented in the note. Any exceptions or clarifications are listed here: [None] Documented By: Lian Santos MD, FACOG Subjective 28 yo post day 1 s/p Ambulation: ambulating normally Voiding: no voiding problems Passing Gas:: Yes Diet Tolerance:: regular diet Lochia:: Small Feeding Type:: breast feeding Current Pain Level: mild Resting comfortably this AM in NAD. Denies COATES, CP, SOB, N/V/D, LE pain/swelling. Review of Systems Review of Systems: reviewed, per HPI Physical Exam Physical Exam: General: patient resting comfortably, NAD, non-toxic in appearance, answers questions appropriately. Skin: warm, dry, intact HEENT: NC/AT, anicteric sclera, conjunctiva without injection, moist mucus membranes. Heart: +S1/S2, regular, no m/r/g Lungs: equal air entry bilaterally, no rales/rhonchi/wheezes Abd: +BS, soft, NT/ND, uterine fundus firm at umbilicus Ext: warm, no clubbing/cyanosis or edema, Desmond's neg. Neuro: speech intact, no facial droop, moving all extremities on command. Results & Data Vital Signs (Past 12 Hours) Vital Signs Temp Pulse Resp BP BP Pulse Ox O2 Del Method 05/31/23 03:06 36.6 C 86 18 133/92 98 Room Air 05/30/23 22:49 36.7 C 100 H 18 129/88 97 Room Air 05/30/23 19:12 36.8 C 96 H 18 139/96 98 Room Air Resident Activity Tracking Resident Involvement: Resident Care Provided Care Provided: Adult Hospital Medicine
[2023-05-31] MEDS: DOCUSATE SODIUM 100 MG CAP PO SCH ×2 (07:52→19:57)
[2023-05-31] MEDS: PRENATAL VITAMIN 1 TAB PO SCH (07:52)
[2023-05-31] MEDS ORDERED: bisacodyL 5 MG TABEC PO SCH (20:00)
[2023-06-01] MEDS: IBUPROFEN 600 MG TAB PO PRN ×2 (00:07→05:18)
[2023-06-01 01:54] VITALS: RESP 18; TEMP 98.1; O2SAT 99
--- NOTE | 2023-06-01 07:20 | Obstetrical Progress Note ---
Date of Service June 01, 2023 Assessment & Plan (1) care following vaginal delivery: Patient doing well; was OOB in [place] when I first visited, so I returned later when she was sitting upright at edge of bed. Feels ready for d/c home. Subjective Ambulation: ambulating normally Voiding: no voiding problems Passing Gas:: Yes Diet Tolerance:: regular diet Lochia:: Small Feeding Type:: breast feeding Physical Exam Constitutional WD/WN, vitals as above Eyes PERRL, conjunctivae normal, anicteric sclerae Neck normal visual inspection Respiratory normal respiratory effort and able to speak in complete sentences; no respiratory distress and no labored breathing Cardiovascular Rate/Rhythm: regular rate and regular rhythm Extremities: no edema Chest (Breasts) Chest: normal inspection of chest Gastrointestinal (Abdomen) Inspection/Auscultation: abdomen normal to inspection Soft, postgravid Psychiatric A+Ox3, euthymic affect Results & Data Vital Signs (Past 12 Hours) Vital Signs Temp Pulse Pulse Resp BP Pulse Ox O2 Del Method 06/01/23 00:06 98.1 F 86 18 136/89 99 Room Air 05/31/23 20:02 97.7 F 88 20 130/88 98 Room Air
[2023-06-01 07:37] LABS: Hematocrit (blood only) 26.4 % (37.0-47.0); Hemoglobin 8.2 g/dl (12.0-16.0)
[2023-06-01] MEDS: DOCUSATE SODIUM 100 MG CAP PO SCH (09:10)
[2023-06-01] MEDS: PRENATAL VITAMIN 1 TAB PO SCH (09:10)
[2023-06-01 10:26] VITALS: BP 138/88
[2023-06-01 10:28] VITALS: PULSE 86
== END 2023-06-01 12:55 | disposition home or self-care (01) | DRG 768 ==
LOC: 4S1 07:36 → 4E2 05-30 16:48
DX: O34.63 Maternal care for abnormality of vagina, third trimester; Z86.69 Personal history of other diseases of the nervous system and sense organs; O40.3XX0 Polyhydramnios, third trimester, not applicable or unspecified; Z98.890 Other specified postprocedural states; O69.81X0 Labor and delivery complicated by cord around neck, without compression, not applicable or unspecified; Z3A.39 39 weeks gestation of pregnancy; O36.63X0 Maternal care for excessive fetal growth, third trimester, not applicable or unspecified; O70.20 Third degree perineal laceration during delivery, unspecified; O65.5 Obstructed labor due to abnormality of maternal pelvic organs; Z37.0 Single live birth